=== PATIENT | male | born 1945 | race Caucasian/White ===

== ENCOUNTER 2017-08-03 22:56 | Inpatient (IN) | payer MEDICARE, BC ==
[~2017-08-03] VITALS: Ht 177.8 cm; Wt 72.6 kg
[~2017-08-03 22:56] MED LIST: ALPR0.255 PO; Acetaminophen PO; BUDE10.22 INH; FEXO-25 PO; FLUT9.9S NS; MONT10TA22 PO; ROSU5TAB PO
[2017-08-03] MEDS ORDERED: ALBUTEROL SULFATE 2.5 MG/3 ML NEBU NEB ONE (23:15)
[2017-08-03] MEDS ORDERED: methylPREDNISolone SOD SUCC 125 MG/2 ML VIAL IV ONE (23:15)
[2017-08-03] MEDS ORDERED: IPRATROPIUM BROMIDE 0.5 MG/2.5 ML NEBU NEB ONE (23:15)
--- NOTE | 2017-08-03 23:20 | NUR ---
RT at bedside. Breathing Tx ongoing
[2017-08-03] MEDS ORDERED: methylPREDNISolone SOD SUCC 125 MG/2 ML VIAL ONE (23:23)
[2017-08-03] MEDS ORDERED: ALBU18HF2 IH (23:27)
[2017-08-03] MEDS ORDERED: IPRATROPIUM BROMIDE 0.5 MG/2.5 ML NEBU ONE (23:28)
[2017-08-03] MEDS ORDERED: ALBUTEROL SULFATE 2.5 MG/3 ML NEBU ONE (23:28)
[2017-08-03 23:42] LABS: BASOPHILS # (AUTO) 0.1 K/uL (0.0-8.0); BASOPHILS % (AUTO) 0.7 % (0.0-2.0); EOSINOPHILS # (AUTO) 0.2 K/uL (0.0-0.7); EOSINOPHILS % (AUTO) 2.2 % (0.0-7.0); HEMATOCRIT 43.9 % (36.7-47.1); HEMOGLOBIN 15.1 g/dL (12.5-16.3); LYMPHOCYTES % (AUTO) 22.8 % (20.5-51.5); MEAN CORPUSCULAR HEMOGLOBIN 32.1 uug (23.8-33.4); MEAN CORPUSCULAR HGB CONC 34 g/dL (32.5-36.3); MEAN CORPUSCULAR VOLUME 93.4 fL (73.0-96.2); MONOCYTES # (AUTO) 0.8 K/uL (2.0-10.0); MONOCYTES % (AUTO) 9.4 % (0.0-11.0); NEUTROPHILS # (AUTO) 5.7 K/uL (1.8-8.9); NEUTROPHILS % (AUTO) 64.9 % (38.5-71.5); PLATELET COUNT (AUTO) 177 K/uL (152-348); WHITE BLOOD COUNT (AUTO) 8.8 K/uL (3.6-10.2)
--- NOTE | 2017-08-03 23:45 | NUR ---
PT PLACED ON BIPAP 12/, R15, 50% PER MD ORDER, NO CHANGES POST ABG. CONT. HHN TX GIVEN IN-LINE, NO ADVERSE REACTION NOTED. PT IS TOLERATING BIPAP MASK AND SETTINGS WELL, NO RESP. DISTRESS NOTED AT THIS TIME. WILL CONTINUE TO MONITOR.
[2017-08-03 23:47] LABS: ABG BASE EXCESS -3.9 mmol/L; ABG HCO3 22.2 mmol/L; ABG PCO2 44.1 mmHg (35.0-45.0); ABG PO2 157.5 mmHg (75.0-100.0); ABG SITE LEFT RADIAL; ABG TOTAL HEMOGLOBIN 15.1 G/dL (13.5-18.0); COHb 1.2 % (0.5-1.5); MetHb 0.3 % (0.0-1.5); O2Hb 97.9 % (94.0-97.0)
[2017-08-03 23:50] LABS: CREATININE 1.1 mg/dL (0.6-1.3); POTASSIUM 4.1 mmol/L (3.5-5.1)
[2017-08-04 00:03] LABS: BILIRUBIN,DIRECT 0.1 mg/dL (0.0-0.2); BILIRUBIN,TOTAL 0.6 mg/dL (0.2-1.0); TOTAL PROTEIN, SERUM 7.1 g/dL (6.4-8.2)
--- NOTE | 2017-08-04 00:10 | NUR ---
Patient in bed, on Bipap. Well tolerated. Will continue to monitor patient.
--- NOTE | 2017-08-04 00:12 | NUR ---
Xray at bedside.
--- NOTE | 2017-08-04 00:34 | NUR ---
Patient remains in bed, tolerating Bipap without acute distress. Will continue to monitor patient.
--- NOTE | 2017-08-04 01:01 | NUR ---
Report given to Nika Harman on SUE
--- NOTE | 2017-08-04 01:01 | NUR ---
Pt. admitted to [facility] (SUE) , under care of Dr. Jett Lynn. Belongs List completed
[2017-08-04] MEDS ORDERED: MAGNESIUM HYDROXIDE 30 ML LIQUID UDC PO PRN (01:15)
[2017-08-04] MEDS ORDERED: HYDROCODONE/APAP 5-325MG TABLET PO PRN (01:15)
[2017-08-04] MEDS ORDERED: Z GUARD REMEDY PASTE 57 GM TUBE TOP PRN (01:15)
[2017-08-04] MEDS ORDERED: ACETAMINOPHEN 325 MG TABLET PO PRN (01:15)
[2017-08-04] MEDS ORDERED: ONDANSETRON 4 MG/2 ML VIAL IV PRN (01:15)
--- NOTE | 2017-08-04 01:25 | NUR ---
Admitted patient from ER via gurney accompanied by RT at bedside with admitting DX: COPD exacerbation. AAOx4. Denies pain/discomforts at this time. Patient exhibiting SOB when off from Bipap. Routine admission care done. Plan of care initiated.
--- NOTE | 2017-08-04 01:30 | NUR ---
PT TRANSPORTED FOR ER TO 207, O2 DELIVERED VIA N/C 4LPM. ON ARRIVAL PT COMPLAINED OF SOB, REQUESTS TO BE PLACED BACK ON BIPAP. PT IS LAYING COMFORTABLY ON BIPAP ON ORDERED SETTINGS. NO RESP. DISTRESS NOTED AT THIS TIME. WILL CONTINUE TO MONITOR.
[2017-08-04 01:34] VITALS: BP 149/85
[2017-08-04] MEDS: LEVOFLOXACIN 750MG/D5W 750 MG in PREMIXED 1 EACH IV SCH (02:25)
[2017-08-04] MEDS ORDERED: LEVOFLOXACIN 750MG/D5W 150 ML IV ONE (02:25)
[2017-08-04 04:00] VITALS: BP 114/81
[2017-08-04] MEDS: ALBUTEROL SULFATE 2.5 MG/3 ML NEBU NEB PRN ×4 (05:27→19:09)
[2017-08-04] MEDS: IPRATROPIUM BROMIDE 0.5 MG/2.5 ML NEBU NEB PRN ×4 (05:28→19:09)
[2017-08-04] MEDS: methylPREDNISolone SOD SUCC 125 MG/2 ML VIAL IV SCH ×2 (05:39→11:38)
--- NOTE | 2017-08-04 05:46 | NUR ---
RT at bedside. Patient reported some chest tightness when he is trying to stand up at the side of bed but resolved when he's back to bed otherwise no SOB/SOBOE presented. Denies having CP. Continue current plan of care.
--- NOTE | 2017-08-04 07:30 | NUR ---
Pt.a/a/o,watching TV ,on BIPAP no s/s of distress,denies any pain @ time
[2017-08-04] MEDS: ENOXAPARIN SODIUM 40 MG/0.4 ML DISP.SYRIN SQ SCH (09:01)
[2017-08-04] MEDS: FEXOFENADINE HCL 60 MG TABLET PO SCH (09:01)
[2017-08-04 11:08] VITALS: BP 122/80
--- NOTE | 2017-08-04 15:00 | NUR ---
Pt.sleeping,no s/s of distress or pain noted.
[2017-08-04 15:53] VITALS: BP 124/81
[2017-08-04] MEDS: MONTELUKAST SODIUM 10 MG TABLET PO SCH (17:56)
[2017-08-04] MEDS: methylPREDNISolone SOD SUCC 40 MG/ML VIAL IV SCH ×2 (17:56→23:19)
--- NOTE | 2017-08-04 18:00 | NUR ---
Pt.eating dinner,family at bedside updated with pt.plan of care and condition,tolerated well no SOB noted ,cont.NC 2l
[2017-08-04 19:00] VITALS: BP 141/73
--- NOTE | 2017-08-04 19:10 | NUR ---
Awake during initial rounds. and friend at bedside. Denies any pain/discomforts but requesting breathing treatment. RT notified. Pt on O2 at 2l via NC now and saturating good. Not in distress. Continue care as planned.
[2017-08-04] MEDS: ATORVASTATIN 10 MG TABLET PO SCH (20:49)
--- NOTE | 2017-08-04 22:45 | NUR ---
Complaint of headache, Tylenol given as ordered and needed. Will monitor.
[2017-08-05 00:27] VITALS: BP 113/56
[2017-08-05] MEDS: ALBUTEROL SULFATE 2.5 MG/3 ML NEBU NEB PRN ×4 (00:57→19:42)
[2017-08-05] MEDS: IPRATROPIUM BROMIDE 0.5 MG/2.5 ML NEBU NEB PRN ×4 (00:57→19:42)
[2017-08-05] MEDS: LEVOFLOXACIN 750MG/D5W 750 MG in PREMIXED 1 EACH IV SCH (02:01)
[2017-08-05 05:44] VITALS: BP 120/69
[2017-08-05] MEDS: methylPREDNISolone SOD SUCC 40 MG/ML VIAL IV SCH ×4 (06:01→23:32)
--- NOTE | 2017-08-05 06:38 | NUR ---
Slept in between care. No further complaint presented. Had one good BM today. Denies SOB/SOBOE during ambulation. Continue current plan of care.
[2017-08-05 06:58] LABS: MAGNESIUM 1.9 mg/dL (1.8-2.4); PHOSPHOROUS 3.3 mg/dL (2.5-4.9); POTASSIUM 4.4 mmol/L (3.5-5.1)
[2017-08-05 07:04] LABS: BASOPHILS % (AUTO) 0.2 % (0.0-2.0); HEMOGLOBIN 13.3 g/dL (12.5-16.3); LYMPHOCYTES # (AUTO) 0.7 K/uL (20.0-40.0); LYMPHOCYTES % (AUTO) 7.9 % (20.5-51.5); MEAN CORPUSCULAR HEMOGLOBIN 31.7 uug (23.8-33.4); MEAN CORPUSCULAR HGB CONC 34 g/dL (32.5-36.3); MEAN CORPUSCULAR VOLUME 92.4 fL (73.0-96.2); MONOCYTES # (AUTO) 0.5 K/uL (2.0-10.0); MONOCYTES % (AUTO) 6.5 % (0.0-11.0); NEUTROPHILS # (AUTO) 7.1 K/uL (1.8-8.9); NEUTROPHILS % (AUTO) 85.4 % (38.5-71.5); PLATELET COUNT (AUTO) 170 K/uL (152-348); RED BLOOD CELL COUNT(AUTO) 4.18 MIL/uL (4.06-5.63); WHITE BLOOD COUNT (AUTO) 8.3 K/uL (3.6-10.2)
[2017-08-05 07:07] LABS: THYROID STIMULATING HORMONE 0.327 mIU/mL (0.358-3.740)
[2017-08-05 07:14] LABS: HEMATOCRIT 38.6 % (36.7-47.1)
--- NOTE | 2017-08-05 07:30 | NUR ---
RECIEVED PT LYINGIN BED, AWAKE, ALERT AND ORIENTED. APPEARS IN GOOD SPIRIT. NO APPARENT RESPIRATORY DISTRESS NOTED. O2 ON 2L NC. O2 SAT IN THE LOW 90'S. LUNGS ARE CLEAR WITH SLIGHT INSPIRATORY WHEEZING AT THE BASES. PT AMBULATES TO THE BATHROOM WITH STEADY GAIT.
--- NOTE | 2017-08-05 08:30 | NUR ---
SEEN AND EXAMINED BY DR RODRIGUEZ. PT WOULD LIKE TO GO HOME BUT MD FEELS LIKE HE NEEDS O2 FOR SUPPLEMENT.
[2017-08-05] MEDS: FEXOFENADINE HCL 60 MG TABLET PO SCH (08:47)
[2017-08-05] MEDS: ENOXAPARIN SODIUM 40 MG/0.4 ML DISP.SYRIN SQ SCH (08:49)
[2017-08-05 08:56] VITALS: BP 122/69
--- NOTE | 2017-08-05 10:00 | NUR ---
SFEBRILE. PT EXERCISE FOR STRENGTHENING AND AMBULATION IN THE BEDSROOM. PT TOLERATING WELL.
[2017-08-05 11:02] VITALS: BP 125/67
--- NOTE | 2017-08-05 12:30 | NUR ---
PT IS OFF TELEMETERY, DCD CARDIAC BEDSIDE MONITOR.
[2017-08-05 15:04] VITALS: BP 113/70
[2017-08-05] MEDS: MONTELUKAST SODIUM 10 MG TABLET PO SCH (17:37)
--- NOTE | 2017-08-05 18:30 | NUR ---
NO CHANGE IN CONDITION.
--- NOTE | 2017-08-05 19:30 | NUR ---
nsg: pt received a/o x 4, no acute distress noted. still on 2L O2 via nc saturating between 92% to 94%. denies sob. on cont pulse ox. ambulatory without assistance. cont to monitor.
[2017-08-05 20:00] VITALS: BP 120/73
[2017-08-05] MEDS: ATORVASTATIN 10 MG TABLET PO SCH (20:37)
--- NOTE | 2017-08-06 | NUR ---
nsg: no acute distress noted. pt awake but comfortable. cont to monitor.
[2017-08-06] MEDS: LEVOFLOXACIN 750MG/D5W 750 MG in PREMIXED 1 EACH IV SCH (02:09)
[2017-08-06] MEDS: ALBUTEROL SULFATE 2.5 MG/3 ML NEBU NEB PRN ×2 (03:09→07:23)
[2017-08-06] MEDS: IPRATROPIUM BROMIDE 0.5 MG/2.5 ML NEBU NEB PRN ×2 (03:09→07:23)
[2017-08-06] MEDS: methylPREDNISolone SOD SUCC 40 MG/ML VIAL IV SCH ×2 (05:17→11:24)
[2017-08-06 05:20] VITALS: BP 119/65
--- NOTE | 2017-08-06 05:33 | NUR ---
nsg: no acute distress noted. denies discomfort. heplock on left antecubital got pulled out. restarted new heplock on LFA #22 gauge. all needs attended.
--- NOTE | 2017-08-06 07:28 | NUR ---
patient resting comfortably in bed at this time. stable condition. no s/s of distress. 2L nc. saturating wnl. bedside o2 monitor at bedside. will continue to monitor. bed in locked/low position, side rails up x2, call light within reach. bed alarm on.
[2017-08-06] MEDS ORDERED: AZIT250T13 PO (08:14)
[2017-08-06] MEDS ORDERED: PRED50TA PO (08:14)
[2017-08-06] MEDS: ENOXAPARIN SODIUM 40 MG/0.4 ML DISP.SYRIN SQ SCH (08:21)
[2017-08-06] MEDS: FEXOFENADINE HCL 60 MG TABLET PO SCH (08:22)
[2017-08-06 11:11] VITALS: BP 133/67
--- NOTE | 2017-08-06 12:00 | NUR ---
Patient discharged home at this time in stable condition, vital signs stable, no s/s of distress. Medication prescriptions faxed to pharmacy and also given a copy. Discharge instructions/education provided. ID band taken off, IV-disconnected. All belongings returned. Patient left medical floor in safe condition, accompanied by friend.
[2017-08-06] MEDS ORDERED: LEVOFLOXACIN 750 MG TABLET PO SCH (23:00)
== END 2017-08-06 12:00 | disposition home or self-care (01) | DRG 190 ==
LOC: ER 22:57 → TELE-TD 08-04 01:09 → MED 08-05 13:00
PROVIDERS: ATTEND Internal Medicine
PROC: 5A09357 Assistance with Respiratory Ventilation, Less than 24 Consecutive Hours, Continuous Positive Airway Pressure (ICD-10-PCS; principal; 2017-08-04)
DX: J44.1 Chronic obstructive pulmonary disease with (acute) exacerbation (principal); J96.01 Acute respiratory failure with hypoxia; J45.901 Unspecified asthma with (acute) exacerbation; E78.5 Hyperlipidemia, unspecified; Z79.899 Other long term (current) drug therapy
CPT/HCPCS: 36415; 36600; 70030-TC; 71045; 83605; 83735; 84100; 84443; 85025; 87040; 93005; 94640; 94660; 94664; A4663; J1650; J1956; J2920; J2930; J3590; J7050

== ENCOUNTER 2017-11-04 15:14 | Emergency (ER) | payer MEDICARE, OTHER ==
[~2017-11-04] VITALS: Ht 177.8 cm; Wt 72.6 kg
[~2017-11-04 15:14] MED LIST changes: +ALBU18HF2 IH; -ALPR0.255 PO; +AZIT250T13 PO; -Acetaminophen PO; +PRED50TA PO
[2017-11-04] MEDS ORDERED: IPRATROPIUM BROMIDE 0.5 MG/2.5 ML NEBU NEB ONE (15:30)
[2017-11-04] MEDS ORDERED: ALBUTEROL SULFATE 2.5 MG/3 ML NEBU NEB ONE (15:30)
[2017-11-04] MEDS ORDERED: methylPREDNISolone SOD SUCC 125 MG/2 ML VIAL IV ONE (15:30)
[2017-11-04] MEDS ORDERED: IV NORMAL SALINE 1000 ML BAG IV ONE (15:30)
[2017-11-04] MEDS ORDERED: IV NORMAL SALINE 250 ML IV ONE (15:41)
[2017-11-04] MEDS ORDERED: ALBUTEROL SULFATE 2.5 MG/3 ML NEBU ONE (15:41)
[2017-11-04] MEDS ORDERED: SWABABLE VALVE TRANSFER SET EA MC ONE (15:41)
[2017-11-04] MEDS ORDERED: IOHEXOL 350 100 ML INFUS..BTL ONE (15:41)
[2017-11-04] MEDS ORDERED: IPRATROPIUM BROMIDE 0.5 MG/2.5 ML NEBU ONE (15:41)
[2017-11-04] MEDS ORDERED: LIDOCAINE HCL 1% 20 ML VIAL ONE (15:41)
[2017-11-04] MEDS ORDERED: ALBUTEROL SULFATE 2.5 MG/ 0.5 ML NEBU ONE (15:42)
[2017-11-04] MEDS ORDERED: methylPREDNISolone SOD SUCC 125 MG/2 ML VIAL ONE (15:57)
[2017-11-04 16:05] LABS: BASOPHILS # (AUTO) 0.1 K/uL (0.0-8.0); BASOPHILS % (AUTO) 0.7 % (0.0-2.0); EOSINOPHILS # (AUTO) 0.1 K/uL (0.0-0.7); EOSINOPHILS % (AUTO) 1.3 % (0.0-7.0); HEMATOCRIT 40.1 % (36.7-47.1); HEMOGLOBIN 13.6 g/dL (12.5-16.3); LYMPHOCYTES # (AUTO) 1.1 K/uL (20.0-40.0); LYMPHOCYTES % (AUTO) 14.2 % (20.5-51.5); MEAN CORPUSCULAR HEMOGLOBIN 32.1 uug (23.8-33.4); MEAN CORPUSCULAR HGB CONC 34 g/dL (32.5-36.3); MEAN CORPUSCULAR VOLUME 94.6 fL (73.0-96.2); MONOCYTES # (AUTO) 0.9 K/uL (2.0-10.0); MONOCYTES % (AUTO) 11.2 % (0.0-11.0); NEUTROPHILS # (AUTO) 5.6 K/uL (1.8-8.9); NEUTROPHILS % (AUTO) 72.6 % (38.5-71.5); PLATELET COUNT (AUTO) 181 K/uL (152-348); RED BLOOD CELL COUNT(AUTO) 4.24 MIL/uL (4.06-5.63); WHITE BLOOD COUNT (AUTO) 7.8 K/uL (3.6-10.2)
[2017-11-04 16:15] LABS: CARBON DIOXIDE 27 mmol/L (21-32); CHLORIDE 105 mmol/L (98-107); CREATININE 1.2 mg/dL (0.6-1.3); GLUCOSE 129 mg/dL (74-106); UREA NITROGEN, BLOOD 17 mg/dL (7-18)
[2017-11-04 16:27] LABS: ALANINE AMINOTRANSFERASE 45 U/L (16-63); ALKALINE PHOSPHATASE 44 U/L (50-136); ASPARTATE AMINOTRANSFERASE 28 U/L (15-37); BILIRUBIN,DIRECT 0.3 mg/dL (0.0-0.2); BILIRUBIN,TOTAL 1.8 mg/dL (0.2-1.0); TOTAL PROTEIN, SERUM 6.4 g/dL (6.4-8.2)
--- NOTE | 2017-11-04 17:37 | NUR ---
IV removed. Catheter intact and site benign. Pressure and 4x4 gauze applied to site. No bleeding noted. Patient discharged to home in stable conditon & steady gait. Written and verbal after care instructions given to patient and spouse. Patient and spouse verbalized understanding of instructions.
== END 2017-11-04 17:39 | disposition home or self-care (01) ==
LOC: ER 15:16
DX: J44.9 Chronic obstructive pulmonary disease, unspecified (principal); G43.809 Other migraine, not intractable, without status migrainosus; E78.00 Pure hypercholesterolemia, unspecified
CPT/HCPCS: 36415; 71045; 71275; 80048; 80076; 83880; 84484; 85025; 93005; 94644; 96374; 99285; A4663; J2930; J3490; J3590; J7050; Q9967; 70030-TC; J7030